=== PATIENT | female | born 1970 | race Two or more races ===

== ENCOUNTER 2020-12-14 06:16 | Inpatient (IN) | payer MEDICAID ==
[2020-12-11 08:51] LABS: APPEARANCE,URINE CLEAR; BILIRUBIN, URINE NEGATIVE (NEGATIVE); COLOR,URINE PALE YELLOW; GLUCOSE, URINE (UA) NEGATIVE (NEGATIVE); KETONES,URINE NEGATIVE (NEGATIVE); LEUKOCYTE ESTERASE ,URINE 2+ (NEGATIVE); NITRITE,URINE NEGATIVE (NEGATIVE); PH,URINE 6 (4.5-8.0); PROTEIN,URINE NEGATIVE (NEGATIVE); UROBILINOGEN,URINE NORMAL MG/DL (0.0-1.0)
[2020-12-11 08:56] LABS: BASOPHILS % (AUTO) 0.9 % (0.0-2.0); EOSINOPHILS % (AUTO) 2.5 % (0.0-3.0); HEMOGLOBIN 11.3 G/DL (12.0-16.0); INR 1.1 (0.9-1.1); LYMPHOCYTES % (AUTO) 28.7 % (20.0-45.0); MEAN CORPUSCULAR VOLUME 87 FL (80-99); MONOCYTES % (AUTO) 8.5 % (1.0-10.0); NEUTROPHILS % (AUTO) 59.4 % (45.0-75.0); PLATELET COUNT 382 K/UL (150-450); RED BLOOD COUNT 4.24 M/UL (4.20-5.40); RED CELL DISTRIBUTION WIDTH 17.1 % (11.6-14.8); WHITE BLOOD COUNT 6.2 K/UL (4.8-10.8)
[2020-12-11 08:59] LABS: ANION GAP 7 mmol/L (5-15); BLOOD UREA NITROGEN 10 mg/dL (7-18); CALCIUM 9.1 MG/DL (8.5-10.1); CARBON DIOXIDE 31 MMOL/L (21-32); CHLORIDE 107 MMOL/L (98-107); CREATININE 0.7 MG/DL (0.55-1.30); POTASSIUM 3.9 MMOL/L (3.5-5.1); SODIUM 145 MMOL/L (136-145)
--- NOTE | 2020-12-11 14:44 | Diagnostic Imaging Report ---
Indication: Shortness of breath Technique: 2 views of the chest Comparison: None Findings: There is a left chest port catheter. Lungs and pleural spaces are clear. The heart size is normal Impression: No acute process
--- NOTE | 2020-12-12 14:29 | Pre-op HX & Phy Repo 2 SIG ---
DATE OF ADMISSION: 12/14/2020 SCHEDULED FOR SURGERY: December 14, 2020. HISTORY OF PRESENT ILLNESS: The patient is a 50-year-old female in overall stable health who presented in July 2020 with a right breast mass measuring 3.2 cm at 10 o'clock 4 cm from the nipple. Core biopsy revealed invasive lobular carcinoma, estrogen and progesterone receptor positive, HER2 negative. At that time, she had a large 3 x 4 cm palpable mass in the upper outer quadrant of the right breast, which was mobile and not fixed to the chest wall. Genetic testing was negative. The patient was treated with neoadjuvant chemotherapy and made it clear that she wanted to have breast conservation surgery and not a mastectomy. The patient completed her neoadjuvant chemotherapy November 15, 2020 and was cleared for surgery one month later by her oncologist. The patient is scheduled to undergo right breast partial mastectomy and right axillary lymph node biopsy. The patient underwent ultrasound on November 21, 2020 revealing the size of the mass at 10 o'clock 4 cm from the nipple is now 2.2 x x 2.1 cm. PAST MEDICAL HISTORY: . MEDICATIONS: Zofran, Imodium, and Remeron. ALLERGIES: None. OPERATIONS: None. REVIEW OF SYSTEMS: 4, para 3. She has regular menstrual periods. PHYSICAL EXAMINATION: GENERAL: The patient is 5 feet 6 inches, 195 pounds. VITAL SIGNS: Within normal limits. HEENT: Within normal limits. LUNGS: Clear. HEART: Regular rhythm. BREASTS: Breasts are large. The left breast is unremarkable. Right breast has a palpable mass in the upper outer quadrant. There is no axillary or supraclavicular lymphadenopathy. ABDOMEN: Soft. PELVIC: Per primary care. RECTAL: Per primary care. EXTREMITIES: Without edema. NEUROLOGIC: Physiologic. IMPRESSION: Invasive lobular carcinoma, right breast status post neoadjuvant chemotherapy. PLAN: Right breast partial mastectomy and right axillary lymph node biopsy. I have had a full discussion with the patient regarding the nature of her condition, the nature of the surgery, indications, alternatives, options, and risks including bleeding, infection, distortion of breast or nipple from scarring, neuritis or neuralgia, need for additional treatment including possible surgery, radiation therapy, chemotherapy, endocrine therapy based on final pathology. All questions have been answered. She understands and agrees to proceed. Cornelius August M.D. DR: Adriana JOB#: [id number] CC:
[~2020-12-14] VITALS: Ht 165.1 cm; Wt 89.8 kg
[2020-12-14] VITALS (17 sets, daily range): BP systolic 99–122; BP diastolic 58–81
--- NOTE | 2020-12-14 07:34 | Pre-Procedure Note/Attestation ---
Pre-Procedure Note/Attestation Complete Prior to Procedure Planned Procedure: right Procedure Narrative: right breast partial mastectomy and right axillary lymph node biopsy Indications for Procedure Pre-Operative Diagnosis: invasive lobular carcinoma right breast Attestation I attest that I discussed the nature of the procedure; its benefits; risks and complications; and alternatives (and the risks and benefits of such alternatives), prior to the procedure, with the patient (or the patient's legal customer operations representative). I attest that, if there was a reasonable possibility of needing a blood transfusion, the patient (or the patient's legal customer operations representative) was given the [facility] standardized written summary, pursuant to the Timur Marlo Blood Safety Act ([place] Health and Safety Code # 1645, as amended). I attest that I re-evaluated the patient just prior to the surgery and that there has been no change in the patient's H&P, except as documented below: none Cornelius August MD Dec 14, 2020 07:34
[2020-12-14] MEDS ORDERED: NS Irrig 1000ml ONE (07:47)
[2020-12-14] MEDS ORDERED: Sterile Water Irrig 2000ml IRRIG ONE (07:47)
[2020-12-14] MEDS ORDERED: LR 1000ml ONE (07:47)
[2020-12-14] MEDS ORDERED: fentaNYL 100 mcg/2 mL IV ONE ×2 (07:57→09:36)
[2020-12-14] MEDS ORDERED: Labetalol 5mg/ml 20ml vial IV PRN (08:00)
[2020-12-14] MEDS ORDERED: Hydromorphone 0.5mg/0.5ml inj IVP PRN (08:00)
[2020-12-14] MEDS ORDERED: HYDROcodone/Acetamin 5/325 tab ORAL PRN ×2 (08:00→10:15)
[2020-12-14] MEDS ORDERED: Ketorolac 30mg Inj IV PRN ×2 (08:00)
[2020-12-14] MEDS ORDERED: Metoclopramide 10mg/2ml Inj IVP PRN ×2 (08:00→10:15)
[2020-12-14] MEDS ORDERED: Meperidine 25mg/1ml Inj (FOR RIGORS ONLY) IV PRN (08:00)
[2020-12-14] MEDS ORDERED: Atropine Sulfate 0.4mg/ml inj IVP PRN (08:00)
[2020-12-14] MEDS ORDERED: oxyCODONE HCL/Acetaminophen 5/325mg ORAL PRN (08:00)
[2020-12-14] MEDS ORDERED: Midazolam 2mg/2ml Inj IVP PRN (08:00)
[2020-12-14] MEDS ORDERED: fentaNYL 100 mcg/2 mL IV PRN (08:00)
[2020-12-14] MEDS ORDERED: LORazepam Inj 2mg/ml 1ml IV PRN (08:00)
[2020-12-14] MEDS ORDERED: DiphenhydrAMINE 50mg/ml Inj IVP PRN (08:00)
[2020-12-14] MEDS ORDERED: Acetaminophen (Non formulary) 100 ML IV ONE (08:00)
[2020-12-14] MEDS ORDERED: LR 1000ml 1,000 ML IVLG SCH (08:00)
[2020-12-14] MEDS ORDERED: HYDROcodone/Acetamin 7.5/325 tab ORAL PRN (08:00)
--- NOTE | 2020-12-14 08:07 | Anethesia Preoperative Eval ---
Anesthesia Pre-op PMH/ROS General Date of Evaluation: Dec 14, 2020 Time of Evaluation: 07:49 Anesthesiologist: Lila ASA Score: ASA 3 Mallampati Score Class I : Soft palate, uvula, fauces, pillars visible Class II: Soft palate, uvula, fauces visible Class III: Soft palate, base of uvula visible Class IV: Only hard plate visible Mallampati Classification: Class II Surgeon: Mariangel Diagnosis: R Breast CA Surgical Procedure: R Partial Mastectomy and Lymph Node Bx Anesthesia History: none Family History: no anesthesia problems Allergies: Coded Allergies: No Known Allergies (Unverified , 12/11/20) Medications: see eMAR Patient NPO?: Yes Past Medical History Hematology/Immune: Reports: other - R Breast CA Other: obesity - BMI 33 Anesthesia Pre-op Phys. Exam Physician Exam Last Vital Signs Date Time Temp Pulse Resp B/P (MAP) Pulse Ox O2 Delivery O2 Flow Rate FiO2 12/14/20 07:04 Room Air 12/14/20 06:58 98.3 80 18 101/67 (78) 98 Constitutional: NAD Neurologic: CN 2-12 intact Cardiovascular: RRR Respiratory: CTA Gastrointestinal: S/NT/ND Airway Exam Mallampati Score: Class II MO: limited ROM: limited Teeth: missing Anesthesia Pre-op A/P Labs Urine Test Test 12/14/20 06:30 Urine HCG, Qualitative Negative (NEGATIVE) Risk Assessment & Plan Assessment: ASA 3 Plan: GA, SED Status Change Before Surgery: No Pre-Antibiotics Dru Gram Ancef IV Given Within 1 Hr of Incision: Yes Time Given: 08:21 Dhruv Sharp MD Dec 14, 2020 08:07
[2020-12-14] MEDS ORDERED: Lidocaine 1% MPF 10mg/ml 5ml ONE (08:12)
[2020-12-14] MEDS ORDERED: Sodium Chloride 10ml vial INJ ONE (08:12)
[2020-12-14] MEDS ORDERED: Bacitracin 50000 Units Vial ONE (08:26)
[2020-12-14] MEDS ORDERED: Ketamine 500mg/10ml vial ONE (09:02)
--- NOTE | 2020-12-14 09:26 | Immediate Post-Op Evaluation ---
Immediate Post-Op Evalulation Immediate Post-Op Evalulation Procedure: R Partial Mastectomy and Lymph Node Bx Date of Evaluation: Dec 14, 2020 Time of Evaluation: 10:27 IV Fluids: 600 LR Blood Products: 0 Estimated Blood Loss: 30 Urinary Output: 0 Blood Pressure Systolic: 120 Blood Pressure Diastolic: 77 Pulse Rate: 66 Respiratory Rate: 16 O2 Sat by Pulse Oximetry: 100 Temperature (Fahrenheit): 98.6 Pain Score (1-10): 2 Nausea: No Vomiting: No Complications 0 Patient Status: awake, reacts, patent, none Hydration Status: adequate Dru Gram Ancef IV Given Within 1 Hr of Incision: Yes Time Given: 08:21 Dhruv Sharp MD Dec 14, 2020 09:26
--- NOTE | 2020-12-14 10:04 | Brief Operative Note ---
Immediate Post Operative Note Operative Note Pre-op Diagnosis: invasive lobular carcinoma right breast Procedure: right breast partial mastectomy and right axillary lymph node biopsy Post-op Diagnosis: same Post-op Diagnosis: same as pre-op Findings: consistent w/pre-op dx studies Surgeon: chris Anesthesiologist: bronson Anesthesia: general Specimen: yes - right breast tissue, right axillary lymph nodes Complications: none Condition: stable Fluids: see anesthesia record Estimated Blood Loss: minimal Drains: KRAMA Implant(s) used?: No Cornelius August MD Dec 14, 2020 10:04
[2020-12-14] MEDS ORDERED: Hydromorphone 0.5mg/0.5ml inj SUBQ PRN (10:15)
--- NOTE | 2020-12-14 10:43 | Operative Note - Dictated ---
DATE OF OPERATION: 12/14/2020 SURGEON: Cornelius August MD. AERIAL SPRAYER: None. ANESTHESIOLOGIST: Dhruv Sharp MD. TYPE OF ANESTHESIA: General. PREOPERATIVE DIAGNOSIS: Invasive lobular carcinoma, right breast, status post neoadjuvant chemotherapy. POSTOPERATIVE DIAGNOSIS: Invasive lobular carcinoma, right breast, status post neoadjuvant chemotherapy. OPERATION PERFORMED: Right breast partial mastectomy and right axillary lymph node biopsy. DESCRIPTION OF PROCEDURE: The patient was taken to the operating room and under general anesthesia with sequential compression device stockings in place, she was prepped and draped in usual fashion. A palpable mass was located in the upper outer quadrant of the right breast. A curvilinear incision was made and flaps dissected circumferentially. There were multiple tumor type vessels that had to be controlled using the Thunderbeat vessel sealing electrosurgical device. A wide partial mastectomy was performed orienting the specimen with sutures placed anterior, superior, and medial. The pathologist inspected the tissue and felt it was close to the superior margin so additional superior margin was taken. The field was irrigated with sterile water followed by antibiotic solution and hemostasis carefully achieved with the Thunderbeat and regular cautery. The incision was closed with interrupted 3-0 Vicryl deep dermal subcutaneous sutures followed by continuous 4-0 Monocryl subcuticular suture. A vertical right axillary incision was made achieving hemostasis with cautery and incising the clavipectoral fascia. Some obviously enlarged lower level lymph nodes were resected on block using the Thunderbeat device. The pathologist confirmed the lymph nodes within the tissue removed. The field was irrigated with sterile water and antibiotic solution and hemostasis carefully achieved with cautery. Through a separate stab incision inferiorly, a 10 flat Johann drain was placed into the axilla and sutured to the skin with a 3-0 nylon skin suture. After ascertaining the hemostasis was secured, the clavipectoral fascia was closed with interrupted 3-0 Vicryl. The subcutaneous tissues closed with interrupted 3-0 Vicryl and the skin closed with continuous 4-0 Monocryl subcuticular suture. Tincture of benzoin and half-inch Steri-Strips were applied to both incisions followed by dry sterile dressing and a surgical vest brassiere was applied. The patient tolerated the procedure well and left the operating room in good condition. Cornelius August M.D. DR: Adriana JOB#: [id number] CC: BONNIE
--- NOTE | 2020-12-14 11:15 | NUR ---
NURSE NOTES: Patient brought down to [facility] - [facility] to room 407-1. Patient belongings (smart phone and clothing) accounted for in front of patient and patient belongings list signed. Patient Ziggy arenas on right side empty and compressed per doctor's orders, patient alert and oriented x4, able to verbalize needs, denies pain at this time, breathing even and unlabored on room air. SCDs on, john-cath on left side intact and patent, no infection s/s noted, v/s WNL.
--- NOTE | 2020-12-14 12:20 | 48 Hour Post Anesthesia Eval ---
Post Anesthesia Evaluation Procedure: R Partial Mastectomy and Lymph Node Bx Date of Evaluation: Dec 14, 2020 Time of Evaluation: 12:28 Blood Pressure Systolic: 117 0: 72 Pulse Rate: 68 Respiratory Rate: 18 Temperature (Fahrenheit): 98 O2 Sat by Pulse Oximetry: 100 Airway: patent Nausea: No Vomiting: No Pain Intensity: 2 Hydration Status: adequate Cardiopulmonary Status: Stable Mental Status/LOC: patient returned to baseline Follow-up Care/Observations: 0 Post-Anesthesia Complications: 0 Follow-up care needed: N/A Dhruv Sharp MD Dec 14, 2020 12:20
--- NOTE | 2020-12-14 13:00 | NUR ---
NURSE NOTES: RT made aware of I/S order.
[2020-12-14] MEDS: D5 1/2NS w/KCl 20mEq 1,000 ML IV SCH (13:14)
--- NOTE | 2020-12-14 15:00 | NUR ---
NURSE NOTES: Ziggy prat drain clear sanguinous output 3mL. KARMA drain compressed and clamped thereafter.
[2020-12-14] MEDS: ceFAZolin sod 1 GM in D5W 55 ML IV SCH (16:55)
--- NOTE | 2020-12-14 19:00 | NUR ---
NURSE NOTES: KARMA drain clear sanguinous output 2mL, compressed and clamped thereafter.
--- NOTE | 2020-12-14 19:30 | NUR ---
NURSE NOTES: Patient awake in bed, alert and oriented x4, on room air, no sign of respiratory distress. With left chest port-a-cath running D5 1/2NS + KCL20 @ 75ml/hr. Dressing dry and intact on left cheft, KARMA drain intact and draining pink fluid. With SCDs on bilateral legs. Instructed to use call light for assistance. Call light in reach. Bed in lowest and locked. Will continue to monitor.
--- NOTE | 2020-12-14 19:40 | NUR ---
NURSE HAND-OFF: Important Events on Shift: 5mL total output from KARMA drain. Post-op right breast partial mastectomy and right axillary lymph node biopsy. Patient Status: stable condition, full code, alert and oriented x4 Diet: regular Pending Orders: [] Pending Results/Labs:[] Pending MD notification:[] Latest Vital Signs: Temperature 97.5 , Pulse 78 , B/P 111 /65 , Respiratory Rate 18 , O2 SAT 97 , Nasal Cannula, O2 Flow Rate 3 . Vital Sign Comment: [] Latest Land Fall Score: 20 Fall Risk: Low Risk Safety Measures: Call light , Bed Alarm , Side Rails , Bed position . Fall Precautions: Report given to VALENTINO Alonso.
--- NOTE | 2020-12-14 23:00 | NUR ---
NURSE NOTES: Patient's request of fruits and bottled water faxed to dietary, done.
[2020-12-15] VITALS: BP 96/57
[2020-12-15] MEDS: ceFAZolin sod 1 GM in D5W 55 ML IV SCH (00:45)
[2020-12-15] MEDS: D5 1/2NS w/KCl 20mEq 1,000 ML IV SCH (00:46)
[2020-12-15 04:00] VITALS: BP 90/61
--- NOTE | 2020-12-15 04:21 | NUR ---
NURSE NOTES: Called RT for incentive spirometer but it's not available at this time. Will follow up in AM when warehouse is open.
--- NOTE | 2020-12-15 07:16 | NUR ---
NURSE HAND-OFF: Important Events on Shift: KARMA output 5ml Patient Status: Diet: Pending Orders: Pending Results/Labs: Pending MD notification: Latest Vital Signs: Temperature 97.6 , Pulse 65 , B/P 90 /61 , Respiratory Rate 20 , O2 SAT 99 , Nasal Cannula, O2 Flow Rate 3 . Vital Sign Comment: Latest Land Fall Score: 20 Fall Risk: Low Risk Safety Measures: Call light Within Reach, Bed Alarm Zone 1, Side Rails Side Rails x2, Bed position Low and Locked. Fall Precautions: Yellow Socks Patient Fall Education Report given to VALENTINO Fountain.
--- NOTE | 2020-12-15 07:18 | NUR ---
NURSE NOTES: Received hand-off report from VALENTINO Alonso. Patient in stable condition, alert and oriented x4, breathing even and unlabored on room air, KARMA draining pink clear fluid, patent, and site intact on right side. Left portacath site is clean, dry and intact, no s/s of infection. Bed in lowest and locked position, bed alarm on, call light within reach, side rails upx2, fall prevention precaution education provided.
[2020-12-15 08:00] VITALS: BP 100/65
--- NOTE | 2020-12-15 10:04 | NUR ---
NURSE NOTES: Called RT for incentive spirometer, RT Lacey will be up shortly. Instruction for patient I/S use given. Patient verbalized understanding.
[2020-12-15 12:00] VITALS: BP 110/68
--- NOTE | 2020-12-15 12:18 | Surgery Progress Note ---
Surgery Progress Note Subjective Symptoms: improved, tolerating diet, voiding well, passing flatus Objective Last 24 Hour Vital Signs Date Time Temp Pulse Resp B/P (MAP) Pulse Ox O2 Delivery O2 Flow Rate FiO2 12/15/20 08:00 97.1 77 18 100/65 (77) 96 12/15/20 04:00 97.6 65 20 90/61 (71) 99 12/15/20 00:00 98.0 77 20 96/57 (70) 97 12/14/20 21:00 Room Air 12/14/20 20:00 97.8 78 20 99/70 (80) 95 12/14/20 16:00 97.5 78 18 111/65 (80) 97 12/14/20 13:37 Room Air 12/14/20 13:00 97.5 70 16 110/72 (85) 99 12/14/20 12:30 97.6 72 18 113/65 (81) 100 12/14/20 12:20 68 18 100 I&O Intake and Output 12/14/20 12/15/20 19:00 07:00 Intake Total 1575 ml 900 ml Output Total 105 ml 5 ml Balance 1470 ml 895 ml Intake IV Total 1075 ml 750 ml Other 500 ml 150 ml Output Drainage Total 5 ml 5 ml Estimated Blood Loss 100 ml # Voids 2 1 Dressing: dry Wound: clean Drains: freida Cardiovascular: RSR Respiratory: clear Abdomen: soft, non-tender, present bowel sounds Extremities: no edema, no tenderness, no cyanosis Plan Additional Comments Covering for Dr. August patient doing well postoperatively minimal pain no nausea vomiting fever chills tolerating diet understands drain dressings clean dry intact wound clean dry intact plan for discharge today full instructions prescription and follow-up given care instructions given will go home with drain follow-up with Dr. Resendiz for drain removal and pathology. Billy Kapadia Dec 15, 2020 12:18
--- NOTE | 2020-12-15 12:39 | NUR ---
NURSE NOTES: Dr. Kapadia, on behalf of Dr. August, gave a verbal discharge order for the patient after thorough assessment including inspection of the right chest and KARMA drain, no s/s infection and patient in stable condition.
--- NOTE | 2020-12-15 14:00 | NUR ---
NURSE NOTES: Patient on room air, breathing and unlabored.
--- NOTE | 2020-12-15 14:20 | NUR ---
NURSE NOTES: Patient belongings list, discharged preparation list, and patient signature page signed and placed in patient chart after verbalizing understanding in the presence of Dr. Kapadia. Patient medical instructions given to patient (female breast cancer, incentive spirometer, incision and drainage, smoking cessation, acetaminophen hydrocodone tab, implanted port insertion, care after, breast cancer survivor follow-up, bulb drain home care), patient demonstrated proficiency in draining KARMA bulb. Incentive spirometer given to patient. Patient signed patient belongings list after all belongings have been accounted for, right chest drain site intact, no s/s of infection of bleeding or swelling (Dr. Kapadia assessed patient and gave ok to go home with port-a-cath and KARMA bulb drain), no bleeding or s/s infection or induration noted. Skin is intact throughout. Patient v/s WNL and patient stable, alert and oriented x4, breathing even and unlabored. Patient prescription written by Dr. August given as instructed and placed copy of instruction in chart.
--- NOTE | 2020-12-15 14:27 | NUR ---
NURSE NOTES: Patient discharged safely. Addendum: 12/15/20 at 1512 by Essie Schwab RN Discharged with spouse (Raz) via private vehicle.
== END 2020-12-15 14:27 | disposition home or self-care (01) | DRG 363 ==
LOC: SUR 06:16 → 4E 12:01
PROC: 07B50ZX Excision of Right Axillary Lymphatic, Open Approach, Diagnostic (ICD-10-PCS; 2020-12-14)
PROC: 0HBT0ZZ Excision of Right Breast, Open Approach (ICD-10-PCS; principal; 2020-12-14 08:00)
DX: C50.411 Malignant neoplasm of upper-outer quadrant of right female breast (principal); Z17.0 Estrogen receptor positive status [ER+]
CPT/HCPCS: 36415; 71046; 80048; 81001; 81025; 85025; 85610; 85730; 93005; 94003; 94150; J2180; J2405

== ENCOUNTER 2020-12-22 11:47 | Emergency (ER) | payer MEDICAID ==
[~2020-12-22] VITALS: Ht 170.2 cm; Wt 79.4 kg
[2020-12-22 12:03] VITALS: BP 129/78
[2020-12-22] MEDS ORDERED: Heparin 1000 units/ml 1ml Vial INJ ONE (12:15)
[2020-12-22 12:18] VITALS: BP 123/72
--- NOTE | 2020-12-25 06:38 | Emergency Room Report ---
History of Present Illness General Chief Complaint: General Complaint Source: Patient Present Illness HPI 50-year-old female presents for evaluation. Referred by PMD. History of breast cancer. Has a port on left chest. States that she still has her port access needle in place from a recent infusion. States that we need to remove it appropriately. He does not have the supplies in his office. Patient denies pain. Denies feeling weakness of dizziness. States she feels fine. No other aggravating relieving factors. Denies any other associated symptoms Allergies: Coded Allergies: Pork (Verified Allergy, Severe, Itchyness and swelling, 12/14/20) COVID-19 Screening Contact w/high risk pt: No Experienced COVID-19 symptoms?: No COVID-19 Testing performed SHANK CEMENTER HAND: No Patient History Past Medical History: other - cancer Past Surgical History: none Pertinent Family History: none Social History: Denies: smoking, alcohol use, drug use Now: No Immunizations: UTD Reviewed Nursing Documentation: PMH: Agreed; PSxH: Agreed Nursing Documentation-PMH Past Medical History: No Stated History Hx Cardiac Problems: No Hx Cancer: Yes Hx Gastrointestinal Problems: No Hx Neurological Problems: No Review of Systems All Other Systems: negative except mentioned in HPI Physical Exam Vital Signs Date Time Temp Pulse Resp B/P (MAP) Pulse Ox O2 Delivery O2 Flow Rate FiO2 12/22/20 11:56 97.5 79 19 129/78 (95) 98 Room Air Sp02 EP Interpretation: reviewed, normal General Appearance: no apparent distress, alert, GCS 15, non-toxic Head: normocephalic, atraumatic Eyes: bilateral eye normal inspection, bilateral eye PERRL ENT: hearing grossly normal, normal pharynx, no angioedema, normal voice Neck: full range of motion, supple/symm/no masses Respiratory: chest non-tender, lungs clear, normal breath sounds, speaking full sentences, other - port-a-Cath in left chest. Needle in place Cardiovascular #1: regular rate, rhythm, no edema Cardiovascular #2: 2+ carotid (R), 2+ carotid (L), 2+ radial (R), 2+ radial (L), 2+ dorsalis pedis (R), 2+ dorsalis pedis (L) Gastrointestinal: normal bowel sounds, non tender, soft, non-distended, no guarding, no rebound Rectal: deferred Genitourinary: normal inspection, no CVA tenderness Musculoskeletal: back normal, normal range of motion, gait/station normal, non- tender Neurologic: alert, motor strength/tone normal, oriented x3, sensory intact, responsive, speech normal Psychiatric: judgement/insight normal, memory normal, mood/affect normal, no suicidal/homicidal ideation Reflexes: 3+ bicep (R), 3+ bicep (L), 3+ tricep (R), 3+ tricep (L), 3+ knee (R), 3+ knee (L) Skin: no rash Lymphatic: no adenopathy Medical Decision Making Diagnostic Impression: Primary Impression: Encounter for care related to Port-a-Cath ER Course 50-year-old female presents for evaluation of Port-A-Cath. Referred by PMD. Port-A-Cath in place. Needle in place. PMD just requesting we flushed with heparin and removed the needle. Flushed with heparin 200 cc. Needle removed. Dressing applied. Patient tolerated without complication. Safe for discharge with close outpatient follow-up Last Vital Signs Date Time Temp Pulse Resp B/P (MAP) Pulse Ox O2 Delivery O2 Flow Rate FiO2 12/22/20 12:18 97.6 68 18 123/72 98 12/22/20 12:03 Room Air Status: improved Disposition: HOME, SELF-CARE Condition: Stable Scripts No Active Prescriptions or Reported Meds Patient Instructions: Implanted Port Insertion, Care After Andrei Osorio MD Dec 25, 2020 06:38
== END 2020-12-22 12:25 | disposition home or self-care (01) ==
LOC: EMR 12:06
DX: Z45.2 Encounter for adjustment and management of vascular access device (principal); Z85.3 Personal history of malignant neoplasm of breast; Z91.018 Allergy to other foods
CPT/HCPCS: 96372; J1644; Z7502; 99283